=== PATIENT | female | born 1955 | race Caucasian/White ===

== ENCOUNTER 2017-12-27 09:32 | Emergency (ER) | payer OTHER ==
[~2017-12-27] VITALS: Ht 170.2 cm; Wt 81.6 kg
== END 2017-12-27 16:15 | disposition home or self-care (01) ==
LOC: ER 09:32 → CPU-OBS 09:33 → ER 16:15
DX: I10 Essential (primary) hypertension (principal); R51 Headache; R00.2 Palpitations
CPT/HCPCS: G0378; G0379; 93005; 70450

== ENCOUNTER 2022-12-06 15:45 | Inpatient (IN) | payer OTHER ==
[~2022-12-06] VITALS: Ht 170.2 cm; Wt 77.1 kg
[2022-12-06] MEDS ORDERED: IRBESARTAN-HCT1 EACH PO (16:31)
--- NOTE | 2022-12-06 16:32 | NUR ---
PACIENTE ALERTA Y ORIENTADA X3, REFIERE TENER TOS, FIEBRE, DOLOR DE CUERPO Y MALESATR GENERAL. SE MOPNITOREAN VS Y SE UBICA EN ANTHONY DE ESPERA
--- NOTE | 2022-12-06 18:32 | NUR ---
PACIENTE EVALUADA POR DR LUCERO QUIEN ORDENA TRATAMIENTO MEDICO, SE LE ORIENTA A PACIENTE SOBRE EL MISMO Y VERBALIZA ENTENDER. SE COLECTAN MUESTRAS DE LABORATORIOS BAJO MEDIDAS ASETPICAS, SE LE HACE ENTREGA A PACIENTE DE ENVASE PARA COLECTA DE U/A Y SE LE AMDINISTRAN MEDICAMENTOS LFORI ORDEN, PACIENTE MANEJADO POR JAMILA MUNOZ.
--- NOTE | 2022-12-07 03:11 | NUR ---
SE RECIBE LLAMADA DE TECNICO DE LAB LA CUAL NOTIFICA QUE PACEINTE PRESENTA POTASIO EN 2.58 SE LLAMA A DOCTORO BARBOSA EL MISMO REFEIRE QUE SE DEJE CON EL SUERON DE KCL QUE PACIENTE TIENE POR ORDEN DE ADMISION.
[2022-12-08] MEDS ORDERED: CEPHALEXIN500 MG (13:18)
[2022-12-08] MEDS ORDERED: FLUTICASONE PRO15 GM (13:18)
[2022-12-17] MEDS ORDERED: LOSARTAN POTAS100 MG PO (11:30)
[2022-12-17] MEDS ORDERED: PANTOPRAZOLE SO40 MG PO (11:31)
[2022-12-17] MEDS ORDERED: NAPR500T14 PO (11:31)
[2022-12-17] MEDS ORDERED: ELIQUIS2.5 MG PO (11:32)
== END 2022-12-17 12:33 | disposition home or self-care (01) | DRG 690 ==
LOC: ER 15:45 → SURH 23:49
PROVIDERS: ADMIT Internal Medicine; ATTEND Internal Medicine
PROC: BW24ZZZ Computerized Tomography (CT Scan) of Chest and Abdomen (ICD-10-PCS; 2022-12-07)
PROC: B24BZZZ Ultrasonography of Heart with Aorta (ICD-10-PCS; 2022-12-07)
PROC: BW30YZZ Magnetic Resonance Imaging (MRI) of Abdomen using Other Contrast (ICD-10-PCS; 2022-12-11)
PROC: BR3CYZZ Magnetic Resonance Imaging (MRI) of Pelvis using Other Contrast (ICD-10-PCS; 2022-12-11)
PROC: 0TB03ZX Excision of Right Kidney, Percutaneous Approach, Diagnostic (ICD-10-PCS; principal; 2022-12-16)
DX: N39.0 Urinary tract infection, site not specified (principal); C64.1 Malignant neoplasm of right kidney, except renal pelvis; E87.1 Hypo-osmolality and hyponatremia; N17.9 Acute kidney failure, unspecified; I13.0 Hypertensive heart and chronic kidney disease with heart failure and stage 1 through stage 4 chronic kidney disease, or unspecified chronic kidney disease; L02.213 Cutaneous abscess of chest wall; E87.6 Hypokalemia; N18.9 Chronic kidney disease, unspecified; I50.9 Heart failure, unspecified; D63.1 Anemia in chronic kidney disease
CPT/HCPCS: 72198; 74185

== ENCOUNTER 2022-12-20 13:21 | Emergency (ER) | payer OTHER ==
[~2022-12-20] VITALS: Ht 170.2 cm; Wt 81.6 kg
[~2022-12-20 13:21] MED LIST: CEPHALEXIN500 MG; ELIQUIS2.5 MG PO; FLUTICASONE PRO15 GM; IRBESARTAN-HCT1 EACH PO; LOSARTAN POTAS100 MG PO; NAPR500T14 PO; PANTOPRAZOLE SO40 MG PO
[2022-12-20] MEDS ORDERED: HYZAAR 50-12.51 EACH (13:36)
== END 2022-12-20 18:32 | disposition home or self-care (01) ==
LOC: ER 13:21
DX: N28.9 Disorder of kidney and ureter, unspecified (principal); D64.89 Other specified anemias; I10 Essential (primary) hypertension; R60.0 Localized edema

== ENCOUNTER 2023-01-16 08:38 | Inpatient (IN) | payer OTHER ==
[~2023-01-16] VITALS: Ht 170.2 cm; Wt 77.1 kg
[~2023-01-16 08:38] MED LIST changes: +HYZAAR 50-12.51 EACH
[2023-01-16] MEDS ORDERED: COZAAR100 MG PO (08:52)
[2023-01-19] MEDS ORDERED: PANTOPRAZOLE SO40 MG (08:03)
== END 2023-01-22 10:30 | disposition home or self-care (01) | DRG 687 ==
LOC: ER 08:38 → SURH 19:13 → SURG 01-17 19:21
PROVIDERS: ADMIT Internal Medicine; ATTEND Internal Medicine
PROC: 4A12X4Z Monitoring of Cardiac Electrical Activity, External Approach (ICD-10-PCS; principal; 2023-01-16)
PROC: 30233N1 Transfusion of Nonautologous Red Blood Cells into Peripheral Vein, Percutaneous Approach (ICD-10-PCS; 2023-01-17)
PROC: BW30YZZ Magnetic Resonance Imaging (MRI) of Abdomen using Other Contrast (ICD-10-PCS; 2023-01-17)
PROC: BW24ZZZ Computerized Tomography (CT Scan) of Chest and Abdomen (ICD-10-PCS; 2023-01-17)
PROC: BW3GZZZ Magnetic Resonance Imaging (MRI) of Pelvic Region (ICD-10-PCS; 2023-01-17)
PROC: CT231ZZ Tomographic (Tomo) Nuclear Medicine Imaging of Kidneys, Ureters and Bladder using Technetium 99m (Tc-99m) (ICD-10-PCS; 2023-01-18)
PROC: B24BZZZ Ultrasonography of Heart with Aorta (ICD-10-PCS; 2023-01-19)
DX: C64.1 Malignant neoplasm of right kidney, except renal pelvis (principal); I50.30 Unspecified diastolic (congestive) heart failure; I82.3 Embolism and thrombosis of renal vein; N17.9 Acute kidney failure, unspecified; D64.9 Anemia, unspecified; Z20.822 Contact with and (suspected) exposure to COVID-19; D63.0 Anemia in neoplastic disease; I11.0 Hypertensive heart disease with heart failure
CPT/HCPCS: 72198; 74185

== ENCOUNTER → 2024-04-19 | Emergency (ER) | payer OTHER ==
[~2024-04-19] VITALS: Ht 170.2 cm; Wt 68.0 kg
[~2024-04-19] MED LIST changes: +CEPHALEXIN750 MG; +CIPRO500 MG; +COZAAR100 MG PO; +PANTOPRAZOLE SO40 MG
== END | disposition left against medical advice (07) ==
LOC: ER 19:33
DX: Z53.21 Procedure and treatment not carried out due to patient leaving prior to being seen by health care provider (principal)

== ENCOUNTER → 2024-04-20 | Emergency (ER) | payer OTHER ==
[~2024-04-20] VITALS: Ht 170.2 cm; Wt 70.3 kg
[2024-04-20 08:52] LABS: HEMATOCRIT 41.6 % (36.0-45.00); HEMOGLOBIN 14.4 g/dL (12.0-15.00); MEAN CELL VOLUME 97.6 fL (80.00-100.00); MEAN CORPUSCULAR HEMOGLOBIN 33.8 pg (27.00-32.0); MEAN CORPUSCULAR HGB CONC 34.6 g/dl (32.0-36.0); PLATELET COUNT 176 K/uL (150-450); RED BLOOD COUNT 4.26 M/uL (4.00-6.00); RED CELL DISTRIBUTION WIDTH 12.4 % (11.5-14.5)
[2024-04-20 09:28] LABS: ALBUMIN 3.5 gm/dL (3.4-5.0); BILIRUBIN TOTAL 0.64 mg/dL (0.3-1.2); CALCIUM 9.7 mg/dL (8.5-10.1); CREATININE SERUM 2.1 mg/dL (0.55-1.02); GFR 23.49; GLOBULINA 3.9 G/DL (2.4-3.5); POTASSIUM 4.24 mEq/L (3.5-5.1); TOTAL PROTEIN 7.4 gm/dL (6.4-8.2)
== END | disposition home or self-care (01) ==
LOC: ER 07:06
PROVIDERS: General Practice
DX: G43.909 Migraine, unspecified, not intractable, without status migrainosus (principal)

== ENCOUNTER 2024-04-21 14:18 | Inpatient (IN) | payer OTHER ==
[~2024-04-21] VITALS: Ht 167.6 cm; Wt 68.0 kg
[2024-04-21 15:16] LABS: HEMATOCRIT 43.8 % (36.0-45.00); HEMOGLOBIN 14.7 g/dL (12.0-15.00); MEAN CELL VOLUME 99.3 fL (80.00-100.00); MEAN CORPUSCULAR HEMOGLOBIN 33.4 pg (27.00-32.0); MEAN CORPUSCULAR HGB CONC 33.6 g/dl (32.0-36.0); PLATELET COUNT 205 K/uL (150-450); RED CELL DISTRIBUTION WIDTH 12.4 % (11.5-14.5)
[2024-04-21 15:22] LABS: ERYTHROCYTE SEDIMENTATION RATE 12 mm/hr
[2024-04-21 15:40] LABS: INR 1.02; PARTIAL THROMBOPLASTIN TIME 27.9 SECONDS (22.0-34.0); PROTHROMBIN TIME 11.1 SECONDS (9.0-11.5)
[2024-04-21 15:58] LABS: ALBUMIN 3.7 gm/dL (3.4-5.0); BILIRUBIN TOTAL 0.76 mg/dL (0.3-1.2); CREATININE SERUM 2.13 mg/dL (0.55-1.02); GFR 23.11; GLOBULINA 3.5 G/DL (2.4-3.5); POTASSIUM 3.73 mEq/L (3.5-5.1); TOTAL PROTEIN 7.2 gm/dL (6.4-8.2)
[2024-04-21] MEDS ORDERED: MORPHINE SULFATE 4 MG/ML CARTRIDGE IV SCH (16:07)
[2024-04-21] MEDS ORDERED: ACETAMINOPHEN 325 MG TABLET PO PRN (16:15)
[2024-04-21] MEDS ORDERED: RINGERS SOLUTION,LACTATED 1,000 ML IV SCH (16:15)
[2024-04-21 16:23] LABS: URINE APPEARANCE Clear; URINE BILIRRUBIN Small (NEGATIVE); URINE BLOOD Negative; URINE COLOR Orange; URINE GLUCOSE Negative (NEGATIVE); URINE KETONE Negative (NEGATIVE); URINE LEUKOCYTE Small; URINE NITRATE Positive; URINE PROTEIN 30 (NEGATIVE)
[2024-04-21 16:26] LABS: URINE RBC 4.2 uL (0.0-20.8)
[2024-04-21 16:42] LABS: URINE BACTERIA 1.2 uL (0.0-1933); URINE EPITHELIAL CELLS 1.2 uL (0.0-38.8); URINE WBC 0.6 uL (0.0-23.2)
[2024-04-21] MEDS ORDERED: ENOXAPARIN SODIUM 40 MG/0.4 ML SYRINGE SUBCUTANEO SCH (17:00)
[2024-04-21] MEDS ORDERED: PHENAZOPYRIDINE HCL 200 MG TABLET PO SCH (17:00)
[2024-04-21 17:47] VITALS: BP 132/82; O2SAT 98
[2024-04-21] MEDS ORDERED: CIPROFLOXACIN IN 5 % DEXTROSE 400 MG/200 ML PIGGYBAG IV SCH (21:00)
[2024-04-21 23:51] VITALS: BP 114/73; O2SAT 98
[2024-04-22 03:30] VITALS: BP 93/62; O2SAT 97
[2024-04-22 08:00] VITALS: BP 136/76; O2SAT 100
[2024-04-22 16:23] VITALS: BP 115/61; O2SAT 97
[2024-04-23 01:21] VITALS: BP 153/82; O2SAT 100
[2024-04-23 08:00] VITALS: BP 146/81; O2SAT 100
[2024-04-23] MEDS ORDERED: KETOROLAC TROMETHAMINE 30 MG VIAL IV SCH (17:00)
[2024-04-23 19:05] VITALS: BP 131/67; O2SAT 96
[2024-04-24 00:58] VITALS: BP 156/75; O2SAT 96
[2024-04-24 02:15] VITALS: BP 147/74; O2SAT 100
[2024-04-24 16:00] VITALS: BP 161/82; O2SAT 98
[2024-04-25 00:56] VITALS: BP 134/77; O2SAT 100
[2024-04-25 08:43] VITALS: BP 146/72; O2SAT 98
[2024-04-25 16:00] VITALS: BP 155/89; O2SAT 97
[2024-04-25] MEDS ORDERED: TRAMADOL HCL 50 MG TABLET PO SCH (18:15)
[2024-04-26] VITALS: BP 170/90; O2SAT 98
[2024-04-26] MEDS ORDERED: ONDANSETRON HCL 2 MG/ML VIAL IV PRN (09:30)
[2024-04-26 09:44] VITALS: BP 179/93; O2SAT 99
[2024-04-26] MEDS ORDERED: GABAPENTIN 300 MG CAPSULE PO SCH (13:00)
[2024-04-26 17:08] VITALS: BP 166/83; O2SAT 100
[2024-04-27] VITALS: BP 160/90; O2SAT 99
[2024-04-27 08:00] VITALS: BP 160/80; O2SAT 97
[2024-04-27] MEDS ORDERED: ZOFRAN8 MG PO (12:26)
[2024-04-27] MEDS ORDERED: GABAPENTIN300 MG PO (12:27)
[2024-04-27] MEDS ORDERED: TRAMADOL HCL50 MG PO (12:28)
== END 2024-04-27 14:36 | disposition home or self-care (01) | DRG 690 ==
LOC: SEC-K 14:18 → SURH 23:50
PROVIDERS: ADMIT Internal Medicine Hematology & Oncology; ATTEND Internal Medicine Hematology & Oncology
PROC: BT43ZZZ Ultrasonography of Bilateral Kidneys (ICD-10-PCS; principal; 2024-04-21)
PROC: BW3GZZZ Magnetic Resonance Imaging (MRI) of Pelvic Region (ICD-10-PCS; 2024-04-23)
PROC: BW30ZZZ Magnetic Resonance Imaging (MRI) of Abdomen (ICD-10-PCS; 2024-04-23)
DX: N39.0 Urinary tract infection, site not specified (principal); N17.9 Acute kidney failure, unspecified; C64.1 Malignant neoplasm of right kidney, except renal pelvis; C78.7 Secondary malignant neoplasm of liver and intrahepatic bile duct; G89.3 Neoplasm related pain (acute) (chronic); M25.551 Pain in right hip; M79.605 Pain in left leg; M79.604 Pain in right leg; I12.9 Hypertensive chronic kidney disease with stage 1 through stage 4 chronic kidney disease, or unspecified chronic kidney disease; N18.9 Chronic kidney disease, unspecified; Z90.5 Acquired absence of kidney
CPT/HCPCS: 72198; 74181